=== PATIENT | female | born 1965 | race Caucasian/White ===

== ENCOUNTER 2017-03-23 09:51 | Emergency (ER) | payer SELFPAY ==
[~2017-03-23] VITALS: Ht 157.5 cm; Wt 52.0 kg
[~2017-03-23 09:51] MED LIST: CLIN1CAP6 PO
[2017-03-23 09:52] VITALS: BP 167/79; PULSE 95; RESP 16; TEMP 98.3; O2SAT 98
[2017-03-23] MEDS ORDERED: IBUP200T2 PO (10:04)
[2017-03-23] MEDS ORDERED: CLIN1CAP6 PO (10:35)
--- NOTE | 2017-03-23 10:35 | PD ---
HPI Chief Complaint: Facial Pain or Swelling Time Seen by Provider: 10:12 Travel History International Travel<30 days: No Contact w/Intl Traveler<30days: No Traveled to known affect area: No History of Present Illness HPI Patient is a 51-year-old female presenting to emergency department for evaluation of left cheek swelling. Patient states she woke up this morning like this. She has a history of the same, she states it recurs every few months. She reports a history of facial surgery with implanted hardware after reconstruction. She denies any fevers, chills, nausea, vomiting, facial pain. She further denies any redness or tooth pain. Patient states she has no insurance and has been unable to follow-up with a specialist. PFS Past Medical History Medical History: Denies Significant Hx GERD: Yes ?: Not Menopausal: Yes Past Surgical History Oral Surgery: Yes (plates, screws) Other Surgery: Yes (BREAST AUGMENTATION) Social History Alcohol Use: Yes (OCC) Tobacco Use: Yes (1 PPD) Substance Use: No Allergies-Medications (Allergen,Severity, Reaction): Coded Allergies: No Known Allergies (Unverified , 03/23/17) Reported Meds & Prescriptions Reported Meds & Active Scripts Active Reported Ibuprofen 200 Mg Tab 200 Mg PO Q4H PRN Review of Systems Except as stated in HPI: all other systems reviewed are Neg Skin: Positive Other (left cheek swelling) Physical Exam Narrative GENERAL: Well-developed, well-nourished, alert female. Resting comfortably in no acute distress. SKIN: Warm and dry. No rash or obvious lesions, no significant edema, no erythema noted to left cheek. No tenderness or warmth to palpation over left cheek. MOUTH: Mucous membranes moist, no lesions, tongue and gums appear normal. HEAD: Normocephalic. EYES: No scleral icterus. No injection or drainage. NECK: Supple, trachea midline. No JVD or lymphadenopathy. CARDIOVASCULAR: Regular rate and rhythm without murmurs, gallops, or rubs. RESPIRATORY: Breath sounds equal bilaterally. No accessory muscle use. GASTROINTESTINAL: Abdomen soft, non-tender, nondistended. MUSCULOSKELETAL: No cyanosis, or edema. BACK: Nontender without obvious deformity. No CVA tenderness. Data Data Last Documented VS Vital Signs Date Time Temp Pulse Resp B/P (MAP) Pulse Ox O2 Delivery O2 Flow Rate FiO2 03/23/17 09:52 98.3 95 16 167/79 (108) 98 Orders Orders Mandatory Outpatient Referral (03/23/17 10:26) MDM Medical Decision Making Medical Screen Exam Complete: Yes Emergency Medical Condition: Yes Medical Record Reviewed: Yes Interpretation(s) Vital Signs Date Time Temp Pulse Resp B/P (MAP) Pulse Ox O2 Delivery O2 Flow Rate FiO2 03/23/17 09:52 98.3 95 16 167/79 (108) 98 Differential Diagnosis Edema versus cellulitis versus dental abscess versus other Narrative Course Patient is a 51-year-old female presenting for evaluation of left cheek swelling. Patient's vital signs are stable, there no obvious signs of infection. There was nontender to palpation, no erythema, no significant edema. Cheek is mildly swollen, I saw this patient approximately a year and a half ago for the same complaint, at that time CT scan was performed to rule out abscess. This was negative and she was given a mandatory referral to oral maxillofacial surgeon. She states that she never followed up and was never called about this. She does state that this swelling occurs every several months and she is given antibiotics and it resolves. At this time patient appears well, she will be given a prescription for oral antibiotics and another mandatory referral has been made for her. She was strongly encouraged to follow up with a dentist as well. She was encouraged to return to emergency department for any new or worsening symptoms. She verbalized understanding of these instructions. Patient is stable for discharge. Diagnosis Primary Impression: Cheek swelling Referrals: Oral Maxillofacial Surgeon 1 week Patient Instructions: General Instructions Additional Instructions: Follow-up with oral maxillofacial surgeon or dentist [facility] health care Return to emergency department for any new or worsening symptoms Complete full course of antibiotics as prescribed Med/Other Pt SpecificInfo: Prescription(s) given Scripts Clindamycin (Clindamycin) 300 Mg Cap 300 MG PO TID for Infection, #21 CAP 0 Refills Prov: Deborah Chaparro 03/23/17 Disposition: 01 DISCHARGE HOME Condition: Stable Deborah Chaparro Mar 23, 2017 10:35
== END 2017-03-23 11:10 | disposition home or self-care (01) ==
LOC: NEPK 09:51
DX: R22.0 Localized swelling, mass and lump, head (principal); F17.200 Nicotine dependence, unspecified, uncomplicated
CPT/HCPCS: 99283

== ENCOUNTER 2017-03-24 11:32 | Inpatient (IN) | payer SELFPAY ==
[~2017-03-24] VITALS: Ht 157.5 cm; Wt 54.6 kg
[~2017-03-24 11:32] MED LIST changes: +IBUP200T2 PO
[2017-03-24 11:35] VITALS: BP 155/74; PULSE 90; RESP 20; TEMP 99; O2SAT 98
--- NOTE | 2017-03-24 12:07 | PD ---
HPI Chief Complaint: Facial Pain or Swelling Time Seen by Provider: 11:45 Travel History International Travel<30 days: No Contact w/Intl Traveler<30days: No Traveled to known affect area: No History of Present Illness HPI 51-year-old female presents to the emergency department for worsening left facial swelling and pain. Patient was seen here yesterday and was given prescription for clindamycin. However, she has taken 3 doses and symptoms have worsened. She does report a history of the same intermittently over the past 2 years. She has not followed up outpatient. Patient denies any fevers or chills. She reports worsening pain and swelling. She had jaw reconstruction surgery in the past and she believes this is the cause of the swelling. She has no other complaints at this time. She is not currently on any other medications other than clindamycin. PFSH Past Medical History GERD: Yes ?: Not Menopausal: Yes Past Surgical History Oral Surgery: Yes (plates, screws) Other Surgery: Yes (BREAST AUGMENTATION) Social History Alcohol Use: Yes (OCC) Tobacco Use: Yes (1 PPD) Substance Use: No Allergies-Medications (Allergen,Severity, Reaction): Coded Allergies: No Known Allergies (Unverified , 03/23/17) Reported Meds & Prescriptions Reported Meds & Active Scripts Active Clindamycin (Clindamycin HCl) 300 Mg Cap 300 Mg PO TID Review of Systems Except as stated in HPI: all other systems reviewed are Neg Physical Exam Narrative GENERAL: Well-nourished, well-developed female patient, afebrile. SKIN: Focused skin assessment warm/dry. HEAD: Normocephalic. Atraumatic. Patient has left facial swelling. No Jethro' s angina. There is induration, but no fluctuance noted. ENT: Mucosa pink and moist. No erythema or exudates. No uvular edema. No uvular , palatal, or tonsillar deviation. Airway patent. Nasal turbinates appear normal without nasal blood, purulent drainage or septal hematoma. Bilateral tympanic membranes are clear without erythema or perforation. EYES: No scleral icterus. No injection or drainage. NECK: Supple, trachea midline. No JVD or lymphadenopathy. CARDIOVASCULAR: Regular rate and rhythm without murmurs, gallops, or rubs. RESPIRATORY: Breath sounds equal bilaterally. No accessory muscle use. Lungs sounds are clear to auscultation. GASTROINTESTINAL: Abdomen soft, non-tender, nondistended. MUSCULOSKELETAL: No cyanosis, or edema. BACK: Nontender without obvious deformity. No CVA tenderness. Data Data Last Documented VS Vital Signs Date Time Temp Pulse Resp B/P (MAP) Pulse Ox O2 Delivery O2 Flow Rate FiO2 03/24/17 14:32 17 03/24/17 11:35 99.0 90 155/74 (101) 98 Room Air Orders Orders Iv Access Insert/Monitor (03/24/17 11:52) Complete Blood Count With Diff (03/24/17 11:52) Basic Metabolic Panel (Bmp) (03/24/17 11:52) Ct Facial Bones W Iv Contrast (03/24/17 ) Ketorolac Inj (Toradol Inj) (03/24/17 13:45) Iohexol 350 Inj (Omnipaque 350 Inj) (03/24/17 14:26) Clindamycin Inj (Cleocin Inj) (03/24/17 15:45) Vancomycin Inj (Vancomycin Inj) (03/24/17 15:45) Dexamethasone Inj (Decadron Inj) (03/24/17 16:00) Admit Order (Ed Use Only) (03/24/17 16:01) Labs Laboratory Tests Test 03/24/17 12:02 White Blood Count 9.4 TH/MM3 Red Blood Count 4.10 MIL/MM3 Hemoglobin 13.7 GM/DL Hematocrit 39.3 % Mean Corpuscular Volume 95.8 FL Mean Corpuscular Hemoglobin 33.3 PG Mean Corpuscular Hemoglobin Concent 34.8 % Red Cell Distribution Width 12.8 % Platelet Count 209 TH/MM3 Mean Platelet Volume 8.3 FL Neutrophils (%) (Auto) 71.8 % Lymphocytes (%) (Auto) 15.6 % Monocytes (%) (Auto) 11.9 % Eosinophils (%) (Auto) 0.4 % Basophils (%) (Auto) 0.3 % Neutrophils # (Auto) 6.7 TH/MM3 Lymphocytes # (Auto) 1.5 TH/MM3 Monocytes # (Auto) 1.1 TH/MM3 Eosinophils # (Auto) 0.0 TH/MM3 Basophils # (Auto) 0.0 TH/MM3 CBC Comment DIFF FINAL Differential Comment Blood Urea Nitrogen 13 MG/DL Creatinine 0.56 MG/DL Random Glucose 106 MG/DL Calcium Level 8.9 MG/DL Sodium Level 139 MEQ/L Potassium Level 4.2 MEQ/L Chloride Level 102 MEQ/L Carbon Dioxide Level 31.0 MEQ/L Anion Gap 6 MEQ/L Estimat Glomerular Filtration Rate 114 ML/MIN [facility] Medical Decision Making Medical Screen Exam Complete: Yes Emergency Medical Condition: Yes Medical Record Reviewed: Yes Differential Diagnosis Abscess versus cellulitis versus parotiditis Narrative Course 51-year-old female presents to the emergency department for worsening of left facial swelling. Patient was seen yesterday and was prescribed clindamycin. IV access established. CBC, BMP are ordered and pending. CT of the facial bones with IV contrast are ordered and pending. CBC shows no acute abnormality. BMP is unremarkable. CT of the facial bones shows left-sided peripheral enhancing premaxillary fluid collection suggesting abscess in the proper clinical setting. It abuts the area of left-sided maxillary surgical hardware; Small left maxillary sinus air-fluid level. Small lateral bone defect left maxillary sinus unchanged from prior study. Patient is started on Vancomycin 1 gm IV, Clindamycin 600 mg IV. I spoke to Dr. Loyd, cranial/facial surgeon on-call. He recommends IV antibiotics, Decadron 8 mg IV 2 doses, admission and consult to him. Hospitalist on-call was paged. Dr. Dunham accepted admission. Diagnosis Primary Impression: Facial abscess Admitting Information Admitting Physician Requests: Silvana Anthony Mar 24, 2017 12:07
[2017-03-24 12:27] LABS: AUTOMATED NEUTROPHIL # 6.7 TH/MM3 (1.8-7.7); BASOPHIL % 0.3 % (0.0-2.0); EOSINOPHIL % 0.4 % (0.0-4.0); HEMATOCRIT 39.3 % (35.0-46.0); HEMO FLAGS DIFF FINAL; LYMPH % 15.6 % (9.0-44.0); LYMPHOCYTE # 1.5 TH/MM3 (1.0-4.8); MEAN CELL VOLUME 95.8 FL (80.0-100.0); MEAN CORPUSCULAR HEMOGLOBIN 33.3 PG (27.0-34.0); MEAN CORPUSCULAR HGB CONC 34.8 % (32.0-36.0); MONO % 11.9 % (0.0-8.0); NEUT % 71.8 % (16.0-70.0); PLATELET COUNT 209 TH/MM3 (150-450); RED CELL DISTRIBUTION WIDTH 12.8 % (11.6-17.2); WHITE BLOOD COUNT 9.4 TH/MM3 (4.0-11.0)
[2017-03-24 12:40] LABS: POTASSIUM 4.2 MEQ/L (3.5-5.1)
[2017-03-24] MEDS ORDERED: KETOROLAC TROMETHAMINE 30 MG/ML (IVP) VIAL IV PUSH ONE (13:45)
[2017-03-24] MEDS ORDERED: IOHEXOL 350 MG/ML 10 ML VIAL (for RAD DIAG) IV PUSH ONE (14:26)
--- NOTE | 2017-03-24 14:59 | RADRPT ---
EXAM DATE/TIME: 03/24/2017 14:02 [place] COMPARISON: CT FACIAL BONES W CONTRAST, September 29, 2015, 17:18. INDICATIONS : Left facial swelling; reaccurent left abscess. IV CONTRAST: 100 cc Omnipaque 350 (iohexol) IV RADIATION DOSE: 36.93 CTDIvol (mGy) MEDICAL HISTORY : Facial trauma. SURGICAL HISTORY : Face ENCOUNTER: Initial ACUITY: 1 day PAIN SCALE: 8/10 LOCATION: Left facial TECHNIQUE: Volumetric scanning of the facial bones was performed. Using automated exposure control and adjustme nt of the mA and/or kV according to patient size, radiation dose was kept as low as reasonably achiev able to obtain optimal diagnostic quality images. DICOM format image data is available electronicall y for review and comparison. FINDINGS: ORBITS: The orbital and infraorbital osseous structures are intact. The retroconal structures have a normal configuration. No radiopaque foreign bodies are seen. NASAL BONE: The nasal bone and maxillary spine are intact ZYGOMATIC ARCHES: Symmetric without evidence of fracture. SINUSES: Post surgical findings anterior goldsmith maxillary sinuses. Small bone defect of the lateral wall left m axillary sinus. Small air-fluid level left maxillary sinus. SOFT TISSUES: Peripheral enhancing fluid collection is seen in the left premaxillary region measuring 2.8xx 2.2 cm indicating abscess. This is immediately adjacent to the left-sided surgical hardware. Adjacent premax illary soft tissue edema and left preorbital soft tissue edema. INTRACRANIAL: No intracranial air seen. CONCLUSION: 1. Left-sided peripheral enhancing premaxillary fluid collection suggesting abscess in the proper cli nical setting. It abuts the area of left-sided maxillary surgical hardware. 2. Small left maxillary sinus air-fluid level. Small lateral bone defect left maxillary sinus unchang ed from prior study. Joshua Solitario MD on March 24, 2017 at 14:53 Board Certified Radiologist. This report was verified electronically.
[2017-03-24] MEDS ORDERED: CLINDAMYCIN INJ 600 MG in SODIUM CHLORIDE 0.9% INJ 100 ML IV ONE (15:45)
[2017-03-24] MEDS ORDERED: VANCOMYCIN INJ 1,000 MG in SODIUM CHLOR 0.9% 250 ML INJ 250 ML IV ONE (15:45)
[2017-03-24] MEDS ORDERED: DEXAMETHASONE SOD PHOS 4 MG/ML VIAL IV PUSH ONE (16:00)
[2017-03-24] MEDS ORDERED: SENNOSIDES 8.6 MG TAB PO PRN (16:30)
[2017-03-24] MEDS ORDERED: PROCHLORPERAZINE 25 MG SUPP RECTAL PRN (16:30)
[2017-03-24] MEDS ORDERED: Vancomycin Consult Pharmacy 1 EA OTHER SCH (16:30)
[2017-03-24] MEDS ORDERED: ACETAMINOPHEN 325 MG TAB PO PRN ×2 (16:30)
[2017-03-24] MEDS ORDERED: NICOTINE 14 MG/24 HR PATCH T-DERMAL ONE (16:30)
[2017-03-24] MEDS ORDERED: cloNIDine HCL 0.1 MG TAB PO PRN (16:30)
[2017-03-24] MEDS ORDERED: BISACODYL 10 MG SUPP RECTAL PRN (16:30)
[2017-03-24] MEDS ORDERED: NALOXONE HCL 0.4 MG/ML AMP IV PRN (16:30)
[2017-03-24] MEDS ORDERED: MAGNESIUM HYDROXIDE SUSP 30 ML CUP PO PRN (16:30)
[2017-03-24] MEDS ORDERED: LACTULOSE SYRUP 20 GM/30 ML CUP PO PRN (16:30)
[2017-03-24] MEDS ORDERED: oxyCODONE/ACETAMINOPHEN 5 MG/325 MG TAB PO PRN (16:30)
[2017-03-24] MEDS ORDERED: SODIUM CHLORIDE 0.9% FLUSH 10 ML FLUSH IV FLUSH PRN (16:30)
[2017-03-24] MEDS ORDERED: ONDANSETRON HCL 4 MG/2 ML VIAL IVP PRN (16:30)
[2017-03-24] MEDS ORDERED: MORPHINE SULFATE 4 MG/ML INJ IV PRN (16:30)
--- NOTE | 2017-03-24 16:42 | HHI.HP ---
[facility] No Primary Care Physician Admission Diagnosis facial abscess Diagnoses: (1) Tobacco abuse Diagnosis: Secondary (2) Failure of outpatient treatment Diagnosis: Principal (3) Dental abscess Diagnosis: Secondary (4) Facial abscess Diagnosis: Principal Travel History International Travel<30 Days: No Contact w/Intl Traveler <30 Da: No Traveled to Known Affected Are: No History of Present Illness 51-year-old female presents to the emergency department for worsening left facial swelling and pain. Patient was seen here yesterday and was given prescription for clindamycin. However, she has taken 3 doses and symptoms have worsened. She does report a history of the same intermittently over the past 2 years. She has not followed up outpatient. Patient denies any fevers or chills. She reports worsening pain and swelling. She had jaw reconstruction surgery in the past and she believes this is the cause of the swelling. She has no other complaints at this time. She is not currently on any other medications other than clindamycin. Review of Systems Constitutional: DENIES: Diaphoretic episodes, Fatigue, Fever, Weight gain, Weight loss, Chills, Dizziness Endocrine: DENIES: Abnorml menstrual pattern, Heat/cold intolerance, Polydipsia , Polyuria, Polyphagia Eyes: DENIES: Blurred vision, Diplopia, Eye inflammation, Eye pain, Vision loss , Photosensitivity Ears, nose, mouth, throat: DENIES: Tinnitus, Hearing loss, Vertigo, Nasal discharge, Oral lesions, Throat pain, Hoarseness, Ear Pain, Running Nose, Epistaxis Respiratory: DENIES: Apneas, Cough, Snoring, Wheezing, Hemoptysis, Sputum production Cardiovascular: DENIES: Chest pain, Palpitations, Syncope, Dyspnea on Exertion , PND Gastrointestinal: DENIES: Abdominal pain, Black stools, Bloody stools, Constipation, Diarrhea Genitourinary: DENIES: Abnormal vaginal bleeding Musculoskeletal: DENIES: Joint pain, Muscle aches, Stiffness, Joint Swelling, Back pain Integumentary: COMPLAINS OF: Abnormal pigmentation, Rash, DENIES: Pruritus, Nail changes, Breast masses, Breast skin changes Hematologic/lymphatic: DENIES: Bruising, Lymphadenopathy Immunologic/allergic: DENIES: Eczema, Urticaria Neurologic: DENIES: Abnormal gait, Headache, Localized weakness, Paresthesias Psychiatric: DENIES: Anxiety, Confusion, Mood changes, Depression Past Family Social History Past Medical History GERD ORAL SURGERY Past Surgical History ORAL SURGERY WITH PLATES AND SCREWS BILATERAL BREAST AUGMENTATION Reported Medications Reported Meds & Active Scripts Active Clindamycin (Clindamycin HCl) 300 Mg Cap 300 Mg PO TID Allergies: Coded Allergies: No Known Allergies (Unverified , 03/23/17) Active Ordered Medications Current Medications Ketorolac Tromethamine (Toradol Inj) 30 mg ONCE ONCE IV PUSH Last administered on 03/24/17 13:44; Start 03/24/17 at 13:45; Stop 03/24/17 at 13:46; Status DC Iohexol (Omnipaque 350 Inj) 100 ml STK-MED ONCE IV PUSH Last administered on 14:26; Start 03/24/17 at 14:26; Stop 03/24/17 at 14:27; Status DC Clindamycin Phosphate 600 mg/ Sodium Chloride 104 ml @ 208 mls/hr ONCE ONCE IV ; Start 03/24/17 at 15:45; Stop 03/24/17 at 16:14; Status DC Vancomycin HCl 1000 mg/Sodium Chloride 250 ml @ 250 mls/hr ONCE ONCE IV Last administered on 03/24/17 16:00; Start 03/24/17 at 15:45; Stop 03/24/17 at 16:44 Dexamethasone Sodium Phosphate (Decadron Inj) 8 mg ONCE ONCE IV PUSH ; Start at 16:00; Stop 03/24/17 at 16:01; Status DC Sodium Chloride 1,000 ml @ 100 mls/hr Q10H IV ; Start 03/24/17 at 16:24; Status UNV Sodium Chloride (NS Flush) 2 ml UNSCH PRN IV FLUSH FLUSH AFTER USING IV ACCESS ; Start 03/24/17 at 16:30; Status UNV Sodium Chloride (NS Flush) 2 ml BID IV FLUSH ; Start 03/24/17 at 21:00; Status UNV Acetaminophen (Tylenol) 650 mg Q4H PRN PO TEMP > 100.4; Start 03/24/17 at 16:30 ; Status UNV Ondansetron HCl (Zofran Inj) 4 mg Q6H PRN IVP NAUSEA OR VOMITING; Start at 16:30; Status UNV Prochlorperazine (Compazine Supp) 25 mg Q12H PRN TX NAUSEA OR VOMITING; Start 03/24/17 at 16:30; Status UNV Zolpidem Tartrate (Ambien) 5 mg HS PRN PO INSOMNIA; Start 03/24/17 at 16:30; Status UNV Heparin Sodium (Porcine) (Heparin Inj) 5,000 units Q12H SQ ; Start 03/24/17 at 16 :30; Status UNV Acetaminophen (Tylenol) 650 mg Q6H PRN PO PAIN SCALE 1 TO 2; Start 03/24/17 at 16:30; Status UNV Oxycodone/ Acetaminophen (Percocet 5-325 Mg) 1 tab Q6H PRN PO PAIN SCALE 3 TO 5; Start 03/24/17 at 16:30; Status UNV Oxycodone/ Acetaminophen (Percocet 10-325 Mg) 1 tab Q6H PRN PO PAIN SCALE 6 TO 10; Start 03/24/17 at 16:30; Status UNV Morphine Sulfate (Morphine Inj) 2 mg Q3H PRN IV Pain 3-5; if unable to take PO ; Start 03/24/17 at 16:30; Status UNV Morphine Sulfate (Morphine Inj) 4 mg Q3H PRN IV Pain 6-10;if unable to take PO ; Start 03/24/17 at 16:30; Status UNV Naloxone HCl (Narcan Inj) 0.4 mg UNSCH PRN IV SEE LABEL COMMENTS; Start at 16:30; Status UNV Senna/Docusate Sodium (Patricia-Colace) 1 tab BID PO ; Start 03/24/17 at 21:00; Status UNV Magnesium Hydroxide (Milk Of Magnesia Liq) 30 ml Q12H PRN PO MILD - MODERATE CONSTIPATION; Start 03/24/17 at 16:30; Status UNV Sennosides (Senokot) 17.2 mg Q12H PRN PO MODERATE - SEVERE CONSTIPATION; Start 03/24/17 at 16:30; Status UNV Bisacodyl (Dulcolax Supp) 10 mg DAILY PRN RECTAL SEVERE CONSITIPATION; Start at 16:30; Status UNV Lactulose (Lactulose Liq) 30 ml DAILY PRN PO SEVERE CONSITIPATION; Start at 16:30; Status UNV Nicotine (Habitrol 14 Mg Patch.24 Hr) 1 patch ONCE ONCE T-DERMAL ; Start at 16:30; Stop 03/24/17 at 16:31; Status UNV Nicotine (Habitrol 14 Mg Patch.24 Hr) 1 patch DAILY T-DERMAL ; Start 03/25/17 at 09:00; Status UNV Miscellaneous Information 1 DAILY T-DERMAL ; Start 03/25/17 at 09:00; Status UNV Family History POSSIBLY HYPERTENSION 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 SKIN: No rashes, ecchymoses or lesions. Cool and dry. RASH AND SWELLING LEFT SIDE OF FACE WITH SOME PTOSIS DUE TO SWELLING, TENDERNESS AND SOME ERYTHEMA HEAD: Atraumatic. Normocephalic. No temporal or scalp tenderness. EYES: Pupils equal round and reactive. Extraocular motions intact. No scleral icterus. No injection or drainage. ENT: Nose without bleeding, purulent drainage or septal hematoma. Throat without erythema, tonsillar hypertrophy or exudate. Uvula midline. Airway patent. NECK: Trachea midline. No JVD or lymphadenopathy. Supple, nontender, no meningeal signs. CARDIOVASCULAR: Regular rate and rhythm without murmurs, gallops, or rubs. S1, S2 NO S3 OR S4 NO HEAVE OR THRILL RESPIRATORY: Clear to auscultation. Breath sounds equal bilaterally. No wheezes , rales, or rhonchi. GASTROINTESTINAL: Abdomen soft, non-tender, nondistended. No hepato-splenomegaly , or palpable masses. No guarding. MUSCULOSKELETAL: Extremities without clubbing, cyanosis, or edema. No joint tenderness, effusion, or edema noted. No calf tenderness. Negative Homans sign bilaterally. NEUROLOGICAL: Awake and alert. Cranial nerves II through XII intact. Motor and sensory grossly within normal limits. Five out of 5 muscle strength in all muscle groups. Normal speech. INSIGHT AND JUDGEMENT ARE GOOD MOOD AND BEHAVIOR ARE APPROPRIATE Laboratory Laboratory Tests Test 03/24/17 12:02 White Blood Count 9.4 Red Blood Count 4.10 Hemoglobin 13.7 Hematocrit 39.3 Mean Corpuscular Volume 95.8 Mean Corpuscular Hemoglobin 33.3 Mean Corpuscular Hemoglobin Concent 34.8 Red Cell Distribution Width 12.8 Platelet Count 209 Mean Platelet Volume 8.3 Neutrophils (%) (Auto) 71.8 Lymphocytes (%) (Auto) 15.6 Monocytes (%) (Auto) 11.9 Eosinophils (%) (Auto) 0.4 Basophils (%) (Auto) 0.3 Neutrophils # (Auto) 6.7 Lymphocytes # (Auto) 1.5 Monocytes # (Auto) 1.1 Eosinophils # (Auto) 0.0 Basophils # (Auto) 0.0 CBC Comment DIFF FINAL Differential Comment Blood Urea Nitrogen 13 Creatinine 0.56 Random Glucose 106 Calcium Level 8.9 Sodium Level 139 Potassium Level 4.2 Chloride Level 102 Carbon Dioxide Level 31.0 Anion Gap 6 Estimat Glomerular Filtration Rate 114 Result Diagram: 03/24/17 1202 03/24/17 1202 Imaging Last Impressions Maxillofacial CT 03/24/17 0000 Signed Impressions: Service Date/Time: Friday, March 24, 2017 14:02 - CONCLUSION: 1. Left-sided peripheral enhancing premaxillary fluid collection suggesting abscess in the proper clinical setting. It abuts the area of left-sided maxillary surgical hardware. 2. Small left maxillary sinus air-fluid level. Small lateral bone defect left maxillary sinus unchanged from prior study. MD Román Brysoni VTE Risk Assessment Caprini VTE Risk Assessment: No/Low Risk (score <= 1) Caprini Risk Assessment Model Point Value = 1 Point Value = 2 Point Value = 3 Point Value = 5 Age 41-60 Minor surgery BMI > 25 kg/m2 Swollen legs Varicose veins or History of unexplained or recurrent spontaneous Oral contraceptives or hormone replacement Sepsis (< 1 month) Serious lung disease, including pneumonia (< 1 month) Abnormal pulmonary function Acute myocardial infarction Congestive heart failure (< 1 month) History of inflammatory bowel disease Medical patient at bed rest Age 61-74 Arthroscopic surgery Major open surgery (> 45 min) Laparoscopic surgery (> 45 min) Malignancy Confined to bed (> 72 hours) Immobilizing plaster cast Central venous access Age >= 75 History of VTE Family history of VTE Factor V Leiden Prothrombin [id number] Lupus anticoagulant Anticardiolipin antibodies Elevated serum homocysteine Heparin-induced thrombocytopenia Other congenital or acquired thrombophilia Stroke (< 1 month) Elective arthroplasty Hip, pelvis, or leg fracture Acute spinal cord injury (< 1 month) Prophylaxis Regimen Total Risk Factor Score Risk Level Prophylaxis Regimen 0-1 Low Early ambulation 2 Moderate Order ONE of the following: *Sequential Compression Device (SCD) *Heparin 5000 units SQ BID 3-4 Higher Order ONE of the following medications: *Heparin 5000 units SQ TID *Enoxaparin/Lovenox 40 mg SQ daily (WT < 150 kg, CrCl > 30 mL/min) *Enoxaparin/Lovenox 30 mg SQ daily (WT < 150 kg, CrCl > 10-29 mL/min) *Enoxaparin/Lovenox 30 mg SQ BID (WT < 150 kg, CrCl > 30 mL/min) AND/OR *Sequential Compression Device (SCD) 5 or more Highest Order ONE of the following medications: *Heparin 5000 units SQ TID (Preferred with Epidurals) *Enoxaparin/Lovenox 40 mg SQ daily (WT < 150 kg, CrCl > 30 mL/min) *Enoxaparin/Lovenox 30 mg SQ daily (WT < 150 kg, CrCl > 10-29 mL/min) *Enoxaparin/Lovenox 30 mg SQ BID (WT < 150 kg, CrCl > 30 mL/min) AND *Sequential Compression Device (SCD) Assessment and Plan Problem List: (1) Failure of outpatient treatment ICD Code: Z78.9 - Other specified health status (2) Tobacco abuse ICD Code: Z72.0 - Tobacco use (3) Dental abscess ICD Code: K04.7 - Periapical abscess without sinus Status: Acute (4) Facial abscess ICD Code: L02.01 - Cutaneous abscess of face Status: Acute Assessment and Plan LEFT FACIAL SWELLING/CELLULITIS/ABSCESS WITH FAILED OUTPATIENT THERAPY LEFT SIDED PERIPHERAL ENHANCING PREMAXILLARY FLUID COLLECTION SUGGESTING ABSCESS CONTINUE ON VANCO AND ZOSYN PHARMACY TO DOSE THE VANCOMYCIN DR AGUIRRE OF CRANIAL/FACIAL SURGEON WILL SEE AND CONSULT TOBACCO ABUSE-- NICODERM HX BILATERAL BREAST AUGMENTATION -STABLE HX OF FACIAL RECONSTRUCTIVE SURGERIES- WITH HARDWARE IN PLACE- MAY CAUSE THE ISSUES [facility] KATIE RN AND PT AND ER Code Status FULL CODE Discussed Condition With [facility] ER AND RN AND PATIENT RolyDarrianJorden MAST Mar 24, 2017 16:42
[2017-03-24 16:49] VITALS: BP 137/74; PULSE 87; RESP 17; O2SAT 100
[2017-03-24] MEDS: SODIUM CHLOR 0.9% 1000 ML INJ 1,000 ML IV SCH (17:35)
[2017-03-24] MEDS: HEPARIN SODIUM - SQ 10,000 UNITS/ML VIAL SQ SCH (18:49)
[2017-03-24] MEDS: PIPERACIL-TAZO 4.5 GM PREMIX 100 ML IV SCH (18:50)
[2017-03-24] MEDS: oxyCODONE/ACETAMINOPHEN 10 MG/325 MG TAB PO PRN (18:50)
[2017-03-24 19:32] VITALS: BP 105/58; PULSE 79; RESP 18; TEMP 98.7; O2SAT 95
[2017-03-24] MEDS: SODIUM CHLORIDE 0.9% FLUSH 10 ML FLUSH IV FLUSH SCH (21:00)
[2017-03-24] MEDS: DOCUSATE SODIUM 50 MG/SENNA 8.6 MG TAB PO SCH (21:00)
[2017-03-24] MEDS: ZOLPIDEM TARTRATE 5 MG TAB PO PRN (22:55)
[2017-03-25] MEDS ORDERED: DEXAMETHASONE SOD PHOS 4 MG/ML VIAL IV PUSH ONE
[2017-03-25] MEDS: PIPERACIL-TAZO 4.5 GM PREMIX 100 ML IV SCH ×4 (00:18→18:16)
[2017-03-25 00:26] VITALS: BP 111/60; PULSE 54; RESP 16; TEMP 98.7; O2SAT 96
[2017-03-25] MEDS: SODIUM CHLOR 0.9% 1000 ML INJ 1,000 ML IV SCH ×2 (02:07→13:41)
[2017-03-25 03:14] VITALS: BP 110/65; PULSE 70; RESP 17; TEMP 97.9; O2SAT 96
[2017-03-25] MEDS: HEPARIN SODIUM - SQ 10,000 UNITS/ML VIAL SQ SCH ×2 (05:21→08:04)
[2017-03-25 07:34] VITALS: BP 113/64; PULSE 50; RESP 19; TEMP 97.8; O2SAT 97
[2017-03-25] MEDS: NICOTINE 14 MG/24 HR PATCH T-DERMAL SCH (08:04)
[2017-03-25] MEDS: DOCUSATE SODIUM 50 MG/SENNA 8.6 MG TAB PO SCH ×2 (08:05→21:14)
[2017-03-25] MEDS: MORPHINE SULFATE 4 MG/ML INJ IV PRN ×2 (08:05→18:18)
[2017-03-25] MEDS: REMOVE OLD PATCH T-DERMAL SCH (08:05)
[2017-03-25 08:18] LABS: AUTOMATED NEUTROPHIL # 9.7 TH/MM3 (1.8-7.7); HEMATOCRIT 38.6 % (35.0-46.0); LYMPH % 5.7 % (9.0-44.0); LYMPHOCYTE # 0.6 TH/MM3 (1.0-4.8); MEAN CELL VOLUME 95.8 FL (80.0-100.0); MEAN CORPUSCULAR HEMOGLOBIN 32.7 PG (27.0-34.0); MEAN CORPUSCULAR HGB CONC 34.2 % (32.0-36.0); MONO % 2.2 % (0.0-8.0); NEUT % 92.1 % (16.0-70.0); PLATELET COUNT 178 TH/MM3 (150-450); RED BLOOD COUNT 4.02 MIL/MM3 (4.00-5.30); RED CELL DISTRIBUTION WIDTH 12.6 % (11.6-17.2); WHITE BLOOD COUNT 10.5 TH/MM3 (4.0-11.0)
[2017-03-25 08:26] LABS: HEMO FLAGS AUTO DIFF
[2017-03-25 08:51] LABS: ALKALINE PHOSPHATASE 74 U/L (45-117); ALT (GPT) 18 U/L (10-53); ANION GAP 7 MEQ/L (5-15); AST (GOT) 9 U/L (15-37); BICARBONATE 26.7 MEQ/L (21.0-32.0); BLOOD UREA NITROGEN 14 MG/DL (7-18); CHLORIDE 105 MEQ/L (98-107); FREE T4 0.96 NG/DL (0.76-1.46); GLOMERULAR FILTRATION RATE 109 ML/MIN (>89); POTASSIUM 3.9 MEQ/L (3.5-5.1); SODIUM (NA) 139 MEQ/L (136-145); TOTAL BILIRUBIN ADULT 0.3 MG/DL (0.2-1.0)
--- NOTE | 2017-03-25 10:17 | HHI.PR ---
Subjective Remarks 51-year-old female presents to the emergency department for worsening left facial swelling and pain. Patient was seen here yesterday and was given prescription for clindamycin. However, she has taken 3 doses and symptoms have worsened. She does report a history of the same intermittently over the past 2 years. She has not followed up outpatient. Patient denies any fevers or chills. She reports worsening pain and swelling. She had jaw reconstruction surgery in the past and she believes this is the cause of the swelling. She has no other complaints at this time. She is not currently on any other medications other than clindamycin. 9-10 WAS STARTED ON VANCO AND ZOSYN SOME SLIGHT IMPROVEMENT ON THE LEFT SIDE DW RN AND PT SEEN WITH FEMALE RN IN ATTENDANCE Objective Vitals Vital Signs Date Time Temp Pulse Resp B/P (MAP) Pulse Ox O2 Delivery O2 Flow Rate FiO2 03/25/17 09:44 21 03/25/17 07:34 97.8 50 19 113/64 (80) 97 03/25/17 06:25 21 03/25/17 03:14 97.9 70 17 110/65 (80) 96 03/25/17 00:26 98.7 54 16 111/60 (77) 96 03/24/17 20:00 18 03/24/17 19:32 98.7 79 18 105/58 (74) 95 03/24/17 17:50 03/24/17 16:49 87 17 137/74 (95) 100 Room Air 03/24/17 14:32 17 03/24/17 11:35 99.0 90 20 155/74 (101) 98 Room Air I/O 03/24/17 03/24/17 03/24/17 03/25/17 03/25/17 03/25/17 07:00 15:00 23:00 07:00 15:00 23:00 Intake Total 100 ml 100 ml Balance 100 ml 100 ml Intake IV Total 100 ml 100 ml Result Diagram: 03/25/1772903/25/17729 Other Results Laboratory Tests Test 03/24/17 12:02 03/25/17 07:30 White Blood Count 9.4 TH/MM3 10.5 TH/MM3 Red Blood Count 4.10 MIL/MM3 4.02 MIL/MM3 Hemoglobin 13.7 GM/DL 13.2 GM/DL Hematocrit 39.3 % 38.6 % Mean Corpuscular Volume 95.8 FL 95.8 FL Mean Corpuscular Hemoglobin 33.3 PG 32.7 PG Mean Corpuscular Hemoglobin Concent 34.8 % 34.2 % Red Cell Distribution Width 12.8 % 12.6 % Platelet Count 209 TH/MM3 178 TH/MM3 Mean Platelet Volume 8.3 FL 8.8 FL Neutrophils (%) (Auto) 71.8 % 92.1 % Lymphocytes (%) (Auto) 15.6 % 5.7 % Monocytes (%) (Auto) 11.9 % 2.2 % Eosinophils (%) (Auto) 0.4 % 0.0 % Basophils (%) (Auto) 0.3 % 0.0 % Neutrophils # (Auto) 6.7 TH/MM3 9.7 TH/MM3 Lymphocytes # (Auto) 1.5 TH/MM3 0.6 TH/MM3 Monocytes # (Auto) 1.1 TH/MM3 0.2 TH/MM3 Eosinophils # (Auto) 0.0 TH/MM3 0.0 TH/MM3 Basophils # (Auto) 0.0 TH/MM3 0.0 TH/MM3 CBC Comment DIFF FINAL AUTO DIFF Differential Comment Erythrocyte Sedimentation Rate 31 mm/hr Blood Urea Nitrogen 13 MG/DL 14 MG/DL Creatinine 0.56 MG/DL 0.58 MG/DL Random Glucose 106 MG/DL 245 MG/DL Calcium Level 8.9 MG/DL 8.4 MG/DL Sodium Level 139 MEQ/L 139 MEQ/L Potassium Level 4.2 MEQ/L 3.9 MEQ/L Chloride Level 102 MEQ/L 105 MEQ/L Carbon Dioxide Level 31.0 MEQ/L 26.7 MEQ/L Anion Gap 6 MEQ/L 7 MEQ/L Estimat Glomerular Filtration Rate 114 ML/MIN 109 ML/MIN C-Reactive Protein 7.41 MG/DL Total Protein 6.4 GM/DL Albumin 3.0 GM/DL Phosphorus Level 2.1 MG/DL Magnesium Level 2.0 MG/DL Alkaline Phosphatase 74 U/L Aspartate Amino Transf (AST/SGOT) 9 U/L Alanine Aminotransferase (ALT/SGPT) 18 U/L Total Bilirubin 0.3 MG/DL Free Thyroxine 0.96 NG/DL Thyroid Stimulating Hormone 3rd Gen 0.307 uIU/ML Imaging Last Impressions Maxillofacial CT 03/24/17 0000 Signed Impressions: Service Date/Time: Friday, March 24, 2017 14:02 - CONCLUSION: 1. Left-sided peripheral enhancing premaxillary fluid collection suggesting abscess in the proper clinical setting. It abuts the area of left-sided maxillary surgical hardware. 2. Small left maxillary sinus air-fluid level. Small lateral bone defect left maxillary sinus unchanged from prior study. Joshua Solitario MD Objective Remarks GENERAL: This is a well-nourished, well-developed patient, in no apparent distress. SKIN: No rashes, ecchymoses or lesions. Cool and dry. RASH AND SWELLING LEFT SIDE OF FACE WITH SOME PTOSIS DUE TO SWELLING, TENDERNESS AND SOME ERYTHEMA- A LITTLE LESS THAN YESTERDAY HEAD: Atraumatic. Normocephalic. No temporal or scalp tenderness. EYES: Pupils equal round and reactive. Extraocular motions intact. No scleral icterus. No injection or drainage. ENT: Nose without bleeding, purulent drainage or septal hematoma. Throat without erythema, tonsillar hypertrophy or exudate. Uvula midline. Airway patent. NECK: Trachea midline. No JVD or lymphadenopathy. Supple, nontender, no meningeal signs. CARDIOVASCULAR: Regular rate and rhythm without murmurs, gallops, or rubs. S1, S2 NO S3 OR S4 NO HEAVE OR THRILL RESPIRATORY: Clear to auscultation. Breath sounds equal bilaterally. No wheezes , rales, or rhonchi. GASTROINTESTINAL: Abdomen soft, non-tender, nondistended. No hepato-splenomegaly , or palpable masses. No guarding. MUSCULOSKELETAL: Extremities without clubbing, cyanosis, or edema. No joint tenderness, effusion, or edema noted. No calf tenderness. Negative Homans sign bilaterally. NEUROLOGICAL: Awake and alert. Cranial nerves II through XII intact. Motor and sensory grossly within normal limits. Five out of 5 muscle strength in all muscle groups. Normal speech. INSIGHT AND JUDGEMENT ARE GOOD MOOD AND BEHAVIOR ARE APPROPRIATE Medications and IVs Current Medications Ketorolac Tromethamine (Toradol Inj) 30 mg ONCE ONCE IV PUSH Last administered on 03/24/17 13:44; Start 03/24/17 at 13:45; Stop 03/24/17 at 13:46; Status DC Iohexol (Omnipaque 350 Inj) 100 ml STK-MED ONCE IV PUSH Last administered on 14:26; Start 03/24/17 at 14:26; Stop 03/24/17 at 14:27; Status DC Clindamycin Phosphate 600 mg/ Sodium Chloride 104 ml @ 208 mls/hr ONCE ONCE IV ; Start 03/24/17 at 15:45; Stop 03/24/17 at 16:14; Status DC Vancomycin HCl 1000 mg/Sodium Chloride 250 ml @ 250 mls/hr ONCE ONCE IV Last administered on 03/24/17 16:00; Start 03/24/17 at 15:45; Stop 03/24/17 at 16:44; Status DC Dexamethasone Sodium Phosphate (Decadron Inj) 8 mg ONCE ONCE IV PUSH Last administered on 03/24/17 17:34; Start 03/24/17 at 16:00; Stop 03/24/17 at 16:01; Status DC Sodium Chloride 1,000 ml @ 100 mls/hr Q10H IV Last administered on 03/24/17 17 :35; Start 03/24/17 at 17:00 Sodium Chloride (NS Flush) 2 ml UNSCH PRN IV FLUSH FLUSH AFTER USING IV ACCESS ; Start 03/24/17 at 16:30 Sodium Chloride (NS Flush) 2 ml BID IV FLUSH ; Start 03/24/17 at 21:00 Acetaminophen (Tylenol) 650 mg Q4H PRN PO TEMP > 100.4; Start 03/24/17 at 16:30 Ondansetron HCl (Zofran Inj) 4 mg Q6H PRN IVP NAUSEA OR VOMITING; Start at 16:30 Prochlorperazine (Compazine Supp) 25 mg Q12H PRN RECTAL NAUSEA OR VOMITING; Start 03/24/17 at 16:30 Zolpidem Tartrate (Ambien) 5 mg HS PRN PO INSOMNIA Last administered on 22:55; Start 03/24/17 at 16:30 Heparin Sodium (Porcine) (Heparin Inj) 5,000 units Q12H SQ Last administered on 03/25/17 08:04; Start 03/24/17 at 18:00 Acetaminophen (Tylenol) 650 mg Q6H PRN PO PAIN SCALE 1 TO 2; Start 03/24/17 at 16:30 Oxycodone/ Acetaminophen (Percocet 5-325 Mg) 1 tab Q6H PRN PO PAIN SCALE 3 TO 5; Start 03/24/17 at 16:30 Oxycodone/ Acetaminophen (Percocet 10-325 Mg) 1 tab Q6H PRN PO PAIN SCALE 6 TO 10 Last administered on 03/24/17 18:50; Start 03/24/17 at 16:30 Morphine Sulfate (Morphine Inj) 2 mg Q3H PRN IV Pain 3-5; if unable to take PO ; Start 03/24/17 at 16:30 Morphine Sulfate (Morphine Inj) 4 mg Q3H PRN IV Pain 6-10;if unable to take PO Last administered on 03/25/17 08:05; Start 03/24/17 at 16:30 Naloxone HCl (Narcan Inj) 0.4 mg UNSCH PRN IV SEE LABEL COMMENTS; Start at 16:30 Senna/Docusate Sodium (Patricia-Colace) 1 tab BID PO Last administered on 08:05; Start 03/24/17 at 21:00 Magnesium Hydroxide (Milk Of Magnesia Liq) 30 ml Q12H PRN PO MILD - MODERATE CONSTIPATION; Start 03/24/17 at 16:30 Sennosides (Senokot) 17.2 mg Q12H PRN PO MODERATE - SEVERE CONSTIPATION; Start 03/24/17 at 16:30 Bisacodyl (Dulcolax Supp) 10 mg DAILY PRN RECTAL SEVERE CONSITIPATION; Start at 16:30 Lactulose (Lactulose Liq) 30 ml DAILY PRN PO SEVERE CONSITIPATION; Start at 16:30 Nicotine (Habitrol 14 Mg Patch.24 Hr) 1 patch ONCE ONCE T-DERMAL ; Start at 16:30; Stop 03/24/17 at 16:42; Status DC Nicotine (Habitrol 14 Mg Patch.24 Hr) 1 patch DAILY T-DERMAL Last administered on 03/25/17 08:04; Start 03/25/17 at 09:00 Miscellaneous Information 1 DAILY T-DERMAL Last administered on 03/25/17 08:05 ; Start 03/25/17 at 09:00 Dexamethasone Sodium Phosphate (Decadron Inj) 8 mg ONCE ONCE IV PUSH Last administered on 03/25/17 00:20; Start 03/25/17 at 00:00; Stop 03/25/17 at 00:01 ; Status DC Pharmacy Profile Note 0 ml @ 0 mls/hr UNSCH OTHER ; Start 03/24/17 at 16:30 Clonidine (Catapres) 0.1 mg Q4H PRN PO SBP>160, DBP>90; Start 03/24/17 at 16:30 Piperacillin Sod/ Tazobactam Sod 100 ml @ 200 mls/hr Q6H IV Last administered on 03/25/17t 05:21; Start 03/24/17 at 18:00 Vancomycin HCl 850 mg/Sodium Chloride 258.5 ml @ 250 mls/hr Q18H IV ; Start 05/01 at 10:00 Miscellaneous Information SPECIFIC LAB TO BE ... ONCE ONCE .XX ; Start 03/26 at 21:45; Stop 03/26/17 at 21:46 Urinary Catheter: No Vascular Central Line Catheter: No A/P Problem List: (1) Failure of outpatient treatment ICD Code: Z78.9 - Other specified health status (2) Tobacco abuse ICD Code: Z72.0 - Tobacco use (3) Dental abscess ICD Code: K04.7 - Periapical abscess without sinus Status: Acute (4) Facial abscess ICD Code: L02.01 - Cutaneous abscess of face Status: Acute Assessment and Plan LEFT FACIAL SWELLING/CELLULITIS/ABSCESS WITH FAILED OUTPATIENT THERAPY LEFT SIDED PERIPHERAL ENHANCING PREMAXILLARY FLUID COLLECTION SUGGESTING ABSCESS CONTINUE ON VANCO AND ZOSYN PHARMACY TO DOSE THE VANCOMYCIN DR AGUIRRE OF CRANIAL/FACIAL SURGEON WILL SEE AND CONSULT TOBACCO ABUSE-- NICODERM HX BILATERAL BREAST AUGMENTATION -STABLE HX OF FACIAL RECONSTRUCTIVE SURGERIES- WITH HARDWARE IN PLACE- MAY CAUSE THE ISSUES VANCO , ZOSYN, DECADRON AM LABS DW RN AND PT AND ER AWAIT CRANIAL/FACIAL SURGERY EVAL CONTINUE ZOSYN AND VANCO LACTINEX CONTINUE ORAL PAIN CONTROL Discharge Planning AWAIT SURGERY Darrian Schulte DO Mar 25, 2017 10:17
[2017-03-25] MEDS: VANCOMYCIN INJ 850 MG in SODIUM CHLOR 0.9% 250 ML INJ 250 ML IV SCH (10:22)
[2017-03-25] MEDS: SODIUM CHLORIDE 0.9% FLUSH 10 ML FLUSH IV FLUSH SCH ×2 (10:22→21:00)
[2017-03-25 11:29] VITALS: BP 103/60; PULSE 69; RESP 17; TEMP 98; O2SAT 96
[2017-03-25 12:53] LABS: HEMOGLOBIN A1a 1.2 %; HEMOGLOBIN A1b 1.7 %; HEMOGLOBIN Ao 82.3 %; HEMOGLOBIN LA1C 3.9 %; HEMOGLOBIN P3 6.1 %
[2017-03-25] MEDS: LACTOBACILLUS ACIDOPHILUS TAB PO SCH ×2 (13:41→18:15)
[2017-03-25 13:44] LABS: SCAN/DIFF AUTO DIFF CONFIRMED
[2017-03-25 16:18] VITALS: BP 114/62; PULSE 55; RESP 17; TEMP 98.5; O2SAT 98
[2017-03-25 20:30] VITALS: BP 109/64; PULSE 59; RESP 18; TEMP 98.4; O2SAT 100
[2017-03-25] MEDS: oxyCODONE/ACETAMINOPHEN 10 MG/325 MG TAB PO PRN (21:15)
[2017-03-25] MEDS: ZOLPIDEM TARTRATE 5 MG TAB PO PRN (21:15)
[2017-03-26] VITALS: BP 111/59; PULSE 54; RESP 18; TEMP 98.4; O2SAT 97
[2017-03-26] MEDS: PIPERACIL-TAZO 4.5 GM PREMIX 100 ML IV SCH ×4 (00:02→19:57)
[2017-03-26] MEDS: SODIUM CHLOR 0.9% 1000 ML INJ 1,000 ML IV SCH ×3 (00:03→13:53)
[2017-03-26] MEDS: MORPHINE SULFATE 4 MG/ML INJ IV PRN ×2 (00:03→14:16)
[2017-03-26] MEDS: HEPARIN SODIUM - SQ 10,000 UNITS/ML VIAL SQ SCH ×2 (04:43→19:58)
[2017-03-26] MEDS: VANCOMYCIN INJ 850 MG in SODIUM CHLOR 0.9% 250 ML INJ 250 ML IV SCH ×2 (04:43→23:56)
[2017-03-26 04:47] LABS: AUTOMATED NEUTROPHIL # 8.5 TH/MM3 (1.8-7.7); BASOPHIL % 0.2 % (0.0-2.0); EOSINOPHIL % 0.3 % (0.0-4.0); HEMATOCRIT 33.7 % (35.0-46.0); HEMO FLAGS DIFF FINAL; LYMPH % 23.7 % (9.0-44.0); LYMPHOCYTE # 2.8 TH/MM3 (1.0-4.8); MEAN CELL VOLUME 95.7 FL (80.0-100.0); MEAN CORPUSCULAR HEMOGLOBIN 32.4 PG (27.0-34.0); MEAN CORPUSCULAR HGB CONC 33.9 % (32.0-36.0); MONO % 5.1 % (0.0-8.0); NEUT % 70.7 % (16.0-70.0); PLATELET COUNT 182 TH/MM3 (150-450); RED BLOOD COUNT 3.52 MIL/MM3 (4.00-5.30); RED CELL DISTRIBUTION WIDTH 12.6 % (11.6-17.2)
[2017-03-26 05:04] VITALS: BP 104/57; PULSE 46; RESP 18; TEMP 98.1; O2SAT 96
[2017-03-26 05:15] LABS: ALKALINE PHOSPHATASE 56 U/L (45-117); ALT (GPT) 15 U/L (10-53); ANION GAP 7 MEQ/L (5-15); AST (GOT) 10 U/L (15-37); BICARBONATE 28.1 MEQ/L (21.0-32.0); BLOOD UREA NITROGEN 11 MG/DL (7-18); CHLORIDE 107 MEQ/L (98-107); GLOMERULAR FILTRATION RATE 101 ML/MIN (>89); MAGNESIUM 1.9 MG/DL (1.5-2.5); POTASSIUM 3.6 MEQ/L (3.5-5.1); SODIUM (NA) 142 MEQ/L (136-145); TOTAL BILIRUBIN ADULT 0.1 MG/DL (0.2-1.0)
[2017-03-26] MEDS: oxyCODONE/ACETAMINOPHEN 10 MG/325 MG TAB PO PRN ×2 (06:50→18:17)
[2017-03-26 08:06] VITALS: BP 110/60; PULSE 58; RESP 18; TEMP 98.4; O2SAT 96
[2017-03-26] MEDS: NICOTINE 14 MG/24 HR PATCH T-DERMAL SCH (09:00)
[2017-03-26] MEDS: SODIUM CHLORIDE 0.9% FLUSH 10 ML FLUSH IV FLUSH SCH ×2 (09:00→22:25)
[2017-03-26] MEDS: REMOVE OLD PATCH T-DERMAL SCH (09:00)
[2017-03-26] MEDS: DOCUSATE SODIUM 50 MG/SENNA 8.6 MG TAB PO SCH ×2 (09:20→22:25)
[2017-03-26] MEDS: LACTOBACILLUS ACIDOPHILUS TAB PO SCH ×3 (09:21→19:58)
[2017-03-26 10:57] VITALS: BP 96/54; PULSE 57; RESP 16; TEMP 98.9; O2SAT 94
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
[2017-03-26 15:02] VITALS: BP 111/58; PULSE 57; RESP 15; TEMP 97.9; O2SAT 95
[2017-03-26 20:43] VITALS: BP 108/57; PULSE 53; RESP 18; TEMP 99; O2SAT 97
[2017-03-26] MEDS ORDERED: PHARMACY ORDERED LAB ONE (21:45)
[2017-03-26] MEDS: ZOLPIDEM TARTRATE 5 MG TAB PO PRN (22:24)
[2017-03-27] VITALS (7 sets, daily range): BP systolic 100–130; BP diastolic 51–80; PULSE 45–65; RESP 16–18; TEMP 97.2–98.1; O2SAT 96–98
[2017-03-27] MEDS: PIPERACIL-TAZO 4.5 GM PREMIX 100 ML IV SCH ×5 (01:13→23:31)
[2017-03-27] MEDS: SODIUM CHLOR 0.9% 1000 ML INJ 1,000 ML IV SCH ×3 (05:00→23:33)
[2017-03-27] MEDS: HEPARIN SODIUM - SQ 10,000 UNITS/ML VIAL SQ SCH ×2 (06:00→18:45)
[2017-03-27 07:39] LABS: AUTOMATED NEUTROPHIL # 3.6 TH/MM3 (1.8-7.7); BASOPHIL % 0.4 % (0.0-2.0); EOSINOPHIL # 0.1 TH/MM3 (0-0.4); EOSINOPHIL % 1.8 % (0.0-4.0); HEMATOCRIT 36.3 % (35.0-46.0); HEMO FLAGS DIFF FINAL; LYMPH % 44.9 % (9.0-44.0); LYMPHOCYTE # 3.6 TH/MM3 (1.0-4.8); MEAN CELL VOLUME 95.3 FL (80.0-100.0); MEAN CORPUSCULAR HEMOGLOBIN 32.6 PG (27.0-34.0); MEAN CORPUSCULAR HGB CONC 34.2 % (32.0-36.0); MONO % 7.6 % (0.0-8.0); NEUT % 45.3 % (16.0-70.0); PLATELET COUNT 191 TH/MM3 (150-450); RED BLOOD COUNT 3.81 MIL/MM3 (4.00-5.30); RED CELL DISTRIBUTION WIDTH 12.6 % (11.6-17.2)
[2017-03-27 08:00] LABS: ANION GAP 6 MEQ/L (5-15); AST (GOT) 13 U/L (15-37); BICARBONATE 28.9 MEQ/L (21.0-32.0); BLOOD UREA NITROGEN 14 MG/DL (7-18); CHLORIDE 106 MEQ/L (98-107); GLOMERULAR FILTRATION RATE 82 ML/MIN (>89); MAGNESIUM 1.8 MG/DL (1.5-2.5); POTASSIUM 3.7 MEQ/L (3.5-5.1); SODIUM (NA) 141 MEQ/L (136-145)
[2017-03-27 08:03] LABS: ALKALINE PHOSPHATASE 52 U/L (45-117); ALT (GPT) 17 U/L (10-53); TOTAL BILIRUBIN ADULT 0.3 MG/DL (0.2-1.0)
[2017-03-27] MEDS: SODIUM CHLORIDE 0.9% FLUSH 10 ML FLUSH IV FLUSH SCH ×2 (09:00→21:00)
[2017-03-27] MEDS: NICOTINE 14 MG/24 HR PATCH T-DERMAL SCH (09:00)
[2017-03-27] MEDS: REMOVE OLD PATCH T-DERMAL SCH (09:00)
[2017-03-27] MEDS: LACTOBACILLUS ACIDOPHILUS TAB PO SCH ×3 (09:04→18:43)
[2017-03-27] MEDS: DOCUSATE SODIUM 50 MG/SENNA 8.6 MG TAB PO SCH ×2 (09:04→21:20)
[2017-03-27] MEDS: oxyCODONE/ACETAMINOPHEN 10 MG/325 MG TAB PO PRN ×3 (09:05→23:32)
--- NOTE | 2017-03-27 16:18 | HHI.PR ---
Subjective Remarks 51-year-old female presents to the emergency department for worsening left facial swelling and pain. Patient was seen here yesterday and was given prescription for clindamycin. However, she has taken 3 doses and symptoms have worsened. She does report a history of the same intermittently over the past 2 years. She has not followed up outpatient. Patient denies any fevers or chills. She reports worsening pain and swelling. She had jaw reconstruction surgery in the past and she believes this is the cause of the swelling. She has no other complaints at this time. She is not currently on any other medications other than clindamycin. 910 WAS STARTED ON VANCO AND ZOSYN SOME SLIGHT IMPROVEMENT ON THE LEFT SIDE DW RN AND PT SEEN WITH FEMALE RN IN ATTENDANCE 03-26 FACE IS ALOT LESS SWOLLEN ON THE LEFT SIDE HAS NOT SEEN ORAL MAXILLARY FACIAL YET- WILL RECONSULT HAS PAIN LEFT SIDE OF FACE,- HAS HISTORY OF TRAUMA AND HARDWARE IN FACE 03-27 PATIENT IS SCHEDULED FOR SURGERY TOMORROW DW RN AND PT TO HAVE I&D OF LEFT MAXILLARY AREA AND REMOVAL OF HARDWARE DW RN AND PT FULL ADMIT NOW Objective Vitals Vital Signs Date Time Temp Pulse Resp B/P (MAP) Pulse Ox O2 Delivery O2 Flow Rate FiO2 03/27/17 15:12 98.0 64 16 100/58 (72) 96 03/27/17 11:53 97.9 62 16 121/69 (86) 97 03/27/17 08:24 97.2 65 18 127/80 (96) 98 03/27/17 04:10 97.9 52 16 110/51 (70) 97 03/27/17 00:06 98.1 45 18 127/60 (82) 97 03/26/17 22:30 12 03/26/17 20:43 99.0 53 18 108/57 (74) 97 I/O 03/26/17 03/26/17 03/26/17 03/27/17 03/27/17 03/27/17 07:00 15:00 23:00 07:00 15:00 23:00 Intake Total 200 ml 1000 ml Balance 200 ml 1000 ml IV Total 200 ml 1000 ml Result Diagram: 03/27/17 0645 03/27/17 0645 Other Results Laboratory Tests Test 03/25/17 07:30 03/26/17 04:10 03/26/17 04:15 03/26/17 21:45 White Blood Count 10.5 TH/MM3 12.0 TH/MM3 Red Blood Count 4.02 MIL/MM3 3.52 MIL/MM3 Hemoglobin 13.2 GM/DL 11.4 GM/DL Hematocrit 38.6 % 33.7 % Mean Corpuscular Volume 95.8 FL 95.7 FL Mean Corpuscular Hemoglobin 32.7 PG 32.4 PG Mean Corpuscular Hemoglobin Concent 34.2 % 33.9 % Red Cell Distribution Width 12.6 % 12.6 % Platelet Count 178 TH/MM3 182 TH/MM3 Mean Platelet Volume 8.8 FL 8.7 FL Neutrophils (%) (Auto) 92.1 % 70.7 % Lymphocytes (%) (Auto) 5.7 % 23.7 % Monocytes (%) (Auto) 2.2 % 5.1 % Eosinophils (%) (Auto) 0.0 % 0.3 % Basophils (%) (Auto) 0.0 % 0.2 % Neutrophils # (Auto) 9.7 TH/MM3 8.5 TH/MM3 Lymphocytes # (Auto) 0.6 TH/MM3 2.8 TH/MM3 Monocytes # (Auto) 0.2 TH/MM3 0.6 TH/MM3 Eosinophils # (Auto) 0.0 TH/MM3 0.0 TH/MM3 Basophils # (Auto) 0.0 TH/MM3 0.0 TH/MM3 CBC Comment AUTO DIFF DIFF FINAL Differential Comment AUTO DIFF CONFIRMED Blood Urea Nitrogen 14 MG/DL 11 MG/DL Creatinine 0.58 MG/DL 0.62 MG/DL Random Glucose 245 MG/DL 140 MG/DL Total Protein 6.4 GM/DL 5.6 GM/DL Albumin 3.0 GM/DL 2.6 GM/DL Calcium Level 8.4 MG/DL 8.0 MG/DL Phosphorus Level 2.1 MG/DL 3.2 MG/DL Magnesium Level 2.0 MG/DL 1.9 MG/DL Alkaline Phosphatase 74 U/L 56 U/L Aspartate Amino Transf (AST/SGOT) 9 U/L 10 U/L Alanine Aminotransferase (ALT/SGPT) 18 U/L 15 U/L Total Bilirubin 0.3 MG/DL 0.1 MG/DL Sodium Level 139 MEQ/L 142 MEQ/L Potassium Level 3.9 MEQ/L 3.6 MEQ/L Chloride Level 105 MEQ/L 107 MEQ/L Carbon Dioxide Level 26.7 MEQ/L 28.1 MEQ/L Anion Gap 7 MEQ/L 7 MEQ/L Estimat Glomerular Filtration Rate 109 ML/MIN 101 ML/MIN Hemoglobin A1c 5.6 % Free Thyroxine 0.96 NG/DL Thyroid Stimulating Hormone 3rd Gen 0.307 uIU/ML Vancomycin Level Trough 5.0 MCG/ML Test 03/27/17 06:45 White Blood Count 8.0 TH/MM3 Red Blood Count 3.81 MIL/MM3 Hemoglobin 12.4 GM/DL Hematocrit 36.3 % Mean Corpuscular Volume 95.3 FL Mean Corpuscular Hemoglobin 32.6 PG Mean Corpuscular Hemoglobin Concent 34.2 % Red Cell Distribution Width 12.6 % Platelet Count 191 TH/MM3 Mean Platelet Volume 8.4 FL Neutrophils (%) (Auto) 45.3 % Lymphocytes (%) (Auto) 44.9 % Monocytes (%) (Auto) 7.6 % Eosinophils (%) (Auto) 1.8 % Basophils (%) (Auto) 0.4 % Neutrophils # (Auto) 3.6 TH/MM3 Lymphocytes # (Auto) 3.6 TH/MM3 Monocytes # (Auto) 0.6 TH/MM3 Eosinophils # (Auto) 0.1 TH/MM3 Basophils # (Auto) 0.0 TH/MM3 CBC Comment DIFF FINAL Differential Comment Blood Urea Nitrogen 14 MG/DL Creatinine 0.74 MG/DL Random Glucose 84 MG/DL Total Protein 5.6 GM/DL Albumin 2.7 GM/DL Calcium Level 8.6 MG/DL Phosphorus Level 4.1 MG/DL Magnesium Level 1.8 MG/DL Alkaline Phosphatase 52 U/L Aspartate Amino Transf (AST/SGOT) 13 U/L Alanine Aminotransferase (ALT/SGPT) 17 U/L Total Bilirubin 0.3 MG/DL Sodium Level 141 MEQ/L Potassium Level 3.7 MEQ/L Chloride Level 106 MEQ/L Carbon Dioxide Level 28.9 MEQ/L Anion Gap 6 MEQ/L Estimat Glomerular Filtration Rate 82 ML/MIN Imaging Last Impressions Maxillofacial CT 03/24/17 0000 Signed Impressions: Service Date/Time: Friday, March 24, 2017 14:02 - CONCLUSION: 1. Left-sided peripheral enhancing premaxillary fluid collection suggesting abscess in the proper clinical setting. It abuts the area of left-sided maxillary surgical hardware. 2. Small left maxillary sinus air-fluid level. Small lateral bone defect left maxillary sinus unchanged from prior study. Joshua Solitario MD Objective Remarks GENERAL: This is a well-nourished, well-developed patient, in no apparent distress. SKIN: No rashes, ecchymoses or lesions. Cool and dry. RASH AND SWELLING LEFT SIDE ALMOST RESOLVED AND BACK TO BASELINE HEAD: Atraumatic. Normocephalic. No temporal or scalp tenderness. EYES: Pupils equal round and reactive. Extraocular motions intact. No scleral icterus. No injection or drainage. ENT: Nose without bleeding, purulent drainage or septal hematoma. Throat without erythema, tonsillar hypertrophy or exudate. Uvula midline. Airway patent. NECK: Trachea midline. No JVD or lymphadenopathy. Supple, nontender, no meningeal signs. CARDIOVASCULAR: Regular rate and rhythm without murmurs, gallops, or rubs. S1, S2 NO S3 OR S4 NO HEAVE OR THRILL RESPIRATORY: Clear to auscultation. Breath sounds equal bilaterally. No wheezes , rales, or rhonchi. GASTROINTESTINAL: Abdomen soft, non-tender, nondistended. No hepato-splenomegaly , or palpable masses. No guarding. MUSCULOSKELETAL: Extremities without clubbing, cyanosis, or edema. No joint tenderness, effusion, or edema noted. No calf tenderness. Negative Homans sign bilaterally. NEUROLOGICAL: Awake and alert. Cranial nerves II through XII intact. Motor and sensory grossly within normal limits. Five out of 5 muscle strength in all muscle groups. Normal speech. INSIGHT AND JUDGEMENT ARE GOOD MOOD AND BEHAVIOR ARE APPROPRIATE Medications and IVs Current Medications Ketorolac Tromethamine (Toradol Inj) 30 mg ONCE ONCE IV PUSH Last administered on 03/24/17 13:44; Start 03/24/17 at 13:45; Stop 03/24/17 at 13:46; Status DC Iohexol (Omnipaque 350 Inj) 100 ml STK-MED ONCE IV PUSH Last administered on 14:26; Start 03/24/17 at 14:26; Stop 03/24/17 at 14:27; Status DC Clindamycin Phosphate 600 mg/ Sodium Chloride 104 ml @ 208 mls/hr ONCE ONCE IV ; Start 03/24/17 at 15:45; Stop 03/24/17 at 16:14; Status DC Vancomycin HCl 1000 mg/Sodium Chloride 250 ml @ 250 mls/hr ONCE ONCE IV Last administered on 03/24/17 16:00; Start 03/24/17 at 15:45; Stop 03/24/17 at 16:44; Status DC Dexamethasone Sodium Phosphate (Decadron Inj) 8 mg ONCE ONCE IV PUSH Last administered on 03/24/17 17:34; Start 03/24/17 at 16:00; Stop 03/24/17 at 16:01; Status DC Sodium Chloride 1,000 ml @ 100 mls/hr Q10H IV Last administered on 03/27/17 15:35; Start 03/24/17 at 17:00 Sodium Chloride (NS Flush) 2 ml UNSCH PRN IV FLUSH FLUSH AFTER USING IV ACCESS ; Start 03/24/17 at 16:30 Sodium Chloride (NS Flush) 2 ml BID IV FLUSH Last administered on 03/26/17 22: 25; Start 03/24/17 at 21:00 Acetaminophen (Tylenol) 650 mg Q4H PRN PO TEMP > 100.4; Start 03/24/17 at 16:30 Ondansetron HCl (Zofran Inj) 4 mg Q6H PRN IVP NAUSEA OR VOMITING; Start at 16:30 Prochlorperazine (Compazine Supp) 25 mg Q12H PRN RECTAL NAUSEA OR VOMITING; Start 03/24/17 at 16:30 Zolpidem Tartrate (Ambien) 5 mg HS PRN PO INSOMNIA Last administered on 22:24; Start 03/24/17 at 16:30 Heparin Sodium (Porcine) (Heparin Inj) 5,000 units Q12H SQ Last administered on 03/26/17 19:58; Start 03/24/17 at 18:00 Acetaminophen (Tylenol) 650 mg Q6H PRN PO PAIN SCALE 1 TO 2; Start 03/24/17 at 16:30 Oxycodone/ Acetaminophen (Percocet 5-325 Mg) 1 tab Q6H PRN PO PAIN SCALE 3 TO 5; Start 03/24/17 at 16:30 Oxycodone/ Acetaminophen (Percocet 10-325 Mg) 1 tab Q6H PRN PO PAIN SCALE 6 TO 10 Last administered on 03/27/17 09:05; Start 03/24/17 at 16:30 Morphine Sulfate (Morphine Inj) 2 mg Q3H PRN IV Pain 3-5; if unable to take PO Last administered on 03/26/17 22:25; Start 03/24/17 at 16:30 Morphine Sulfate (Morphine Inj) 4 mg Q3H PRN IV Pain 6-10;if unable to take PO Last administered on 03/26/17 14:16; Start 03/24/17 at 16:30 Naloxone HCl (Narcan Inj) 0.4 mg UNSCH PRN IV SEE LABEL COMMENTS; Start at 16:30 Senna/Docusate Sodium (Patricia-Colace) 1 tab BID PO Last administered on 09:04; Start 03/24/17 at 21:00 Magnesium Hydroxide (Milk Of Magnesia Liq) 30 ml Q12H PRN PO MILD - MODERATE CONSTIPATION; Start 03/24/17 at 16:30 Sennosides (Senokot) 17.2 mg Q12H PRN PO MODERATE - SEVERE CONSTIPATION; Start 03/24/17 at 16:30 Bisacodyl (Dulcolax Supp) 10 mg DAILY PRN RECTAL SEVERE CONSITIPATION; Start at 16:30 Lactulose (Lactulose Liq) 30 ml DAILY PRN PO SEVERE CONSITIPATION; Start at 16:30 Nicotine (Habitrol 14 Mg Patch.24 Hr) 1 patch ONCE ONCE T-DERMAL ; Start at 16:30; Stop 03/24/17 at 16:42; Status DC Nicotine (Habitrol 14 Mg Patch.24 Hr) 1 patch DAILY T-DERMAL Last administered on 03/25/17 08:04; Start 03/25/17 at 09:00 Miscellaneous Information 1 DAILY T-DERMAL Last administered on 03/25/17 08:05 ; Start 03/25/17 at 09:00 Dexamethasone Sodium Phosphate (Decadron Inj) 8 mg ONCE ONCE IV PUSH Last administered on 03/25/17 00:20; Start 03/25/17 at 00:00; Stop 03/25/17 at 00:01 ; Status DC Pharmacy Profile Note 0 ml @ 0 mls/hr UNSCH OTHER ; Start 03/24/17 at 16:30 Clonidine (Catapres) 0.1 mg Q4H PRN PO SBP>160, DBP>90; Start 03/24/17 at 16:30 Piperacillin Sod/ Tazobactam Sod 100 ml @ 200 mls/hr Q6H IV Last administered on 03/27/17 13:02; Start 03/24/17 at 18:00 Vancomycin HCl 850 mg/Sodium Chloride 258.5 ml @ 250 mls/hr Q18H IV Last administered on 03/26/17 23:56; Start 03/25/17 at 10:00 Miscellaneous Information SPECIFIC LAB TO BE SHUBHAM... ONCE ONCE .XX Last administered on 03/26/17 21:45; Start 03/26/17 at 21:45; Stop 03/26/17 at 21:46 ; Status DC Lactobacillus Acidophilus (Lactinex) 1 tab TID PO Last administered on 13:02; Start 03/25/17 at 13:00 Urinary Catheter: No Vascular Central Line Catheter: No A/P Problem List: (1) Failure of outpatient treatment ICD Code: Z78.9 - Other specified health status (2) Tobacco abuse ICD Code: Z72.0 - Tobacco use (3) Dental abscess ICD Code: K04.7 - Periapical abscess without sinus Status: Acute (4) Facial abscess ICD Code: L02.01 - Cutaneous abscess of face Status: Acute Assessment and Plan LEFT FACIAL SWELLING/CELLULITIS/ABSCESS WITH FAILED OUTPATIENT THERAPY LEFT SIDED PERIPHERAL ENHANCING PREMAXILLARY FLUID COLLECTION SUGGESTING ABSCESS CONTINUE ON VANCO AND ZOSYN PHARMACY TO DOSE THE VANCOMYCIN CRANIAL/FACIAL SURGEON WILL SEE AND CONSULT- AWAIT FACIAL SURGERY EVAL? TOBACCO ABUSE-- NICODERM HX BILATERAL BREAST AUGMENTATION -STABLE HX OF FACIAL RECONSTRUCTIVE SURGERIES- WITH HARDWARE IN PLACE- MAY CAUSE THE ISSUES VANCO , ZOSYN, DECADRON AM LABS DW RN AND PT AND ER AWAIT CRANIAL/FACIAL SURGERY EVAL CONTINUE ZOSYN AND VANCO LACTINEX CONTINUE ORAL PAIN CONTROL FOR SURGERY ON 03-28 WITH CRANIAL/FACIAL SURGERY FULL ADMIT AM LABS Discharge Planning AWAIT SURGERY Darrian Schulte DO Mar 27, 2017 16:18
[2017-03-27] MEDS: VANCOMYCIN INJ 850 MG in SODIUM CHLOR 0.9% 250 ML INJ 250 ML IV SCH (17:42)
[2017-03-27] MEDS: ZOLPIDEM TARTRATE 5 MG TAB PO PRN (21:22)
--- NOTE | 2017-03-27 22:11 | MB ---
cc: LISSET AGUIRRE D.D.S. DATE OF 1965 DATE OF ADMISSION 03/24/2017 DATE OF CONSULTATION 03/26/2017 HISTORY I was asked to evaluate a 51-year-old white female. 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 According to her history she had orthognathic surgery back in the in [facility] where she had a Lefort I osteotomy and sagittal split osteotomy. Since that subsequent time in the last four to five years she had repeated infections with the screw coming out of her cheek approximately a year ago. She has been on and off antibiotics, in and out of hospitals for the past three or four years. She now presents for repeated infection of the left maxillary area. CT scan shows infected left hardware with mobile screws. The patient had been given some IV antibiotics to allow the swelling to come down, now we are going to take her to the operating room to remove the infected hardware and debride the left maxilla. DG Momin /9:25 AM /9:58 PM
[2017-03-28 03:45] VITALS: BP 120/70; PULSE 60; RESP 18; TEMP 98.2; O2SAT 98
[2017-03-28] MEDS: HEPARIN SODIUM - SQ 10,000 UNITS/ML VIAL SQ SCH ×3 (06:00→18:38)
[2017-03-28] MEDS: PIPERACIL-TAZO 4.5 GM PREMIX 100 ML IV SCH ×3 (06:29→17:27)
[2017-03-28] MEDS: oxyCODONE/ACETAMINOPHEN 10 MG/325 MG TAB PO PRN ×3 (06:30→18:37)
[2017-03-28 07:36] VITALS: BP 122/61; PULSE 50; RESP 16; TEMP 98; O2SAT 98
[2017-03-28] MEDS: SODIUM CHLORIDE 0.9% FLUSH 10 ML FLUSH IV FLUSH SCH ×2 (09:00→20:52)
[2017-03-28] MEDS: REMOVE OLD PATCH T-DERMAL SCH (09:00)
[2017-03-28] MEDS: NICOTINE 14 MG/24 HR PATCH T-DERMAL SCH (09:00)
[2017-03-28] MEDS: DOCUSATE SODIUM 50 MG/SENNA 8.6 MG TAB PO SCH ×2 (09:58→20:49)
[2017-03-28] MEDS: LACTOBACILLUS ACIDOPHILUS TAB PO SCH ×3 (09:58→18:38)
[2017-03-28] MEDS: VANCOMYCIN INJ 850 MG in SODIUM CHLOR 0.9% 250 ML INJ 250 ML IV SCH (09:59)
--- NOTE | 2017-03-28 10:00 | HHI.PR ---
Subjective Remarks Follow-up for infected left facial hardware. The patient is doing well today. Going to OR for hardware removal later this afternoon. She is bit nervous for the surgery. No fevers or chills. Pain is currently controlled, but she is concerned about pain control after the surgery. Objective Vitals Vital Signs Date Time Temp Pulse Resp B/P (MAP) Pulse Ox O2 Delivery O2 Flow Rate FiO2 03/28/17 07:36 98.0 50 16 122/61 (81) 98 03/28/17 03:45 98.2 60 18 120/70 (87) 98 03/28/17 00:32 18 03/27/17 23:39 98.0 58 18 118/64 (82) 97 03/27/17 19:32 97.9 57 18 130/72 (91) 97 03/27/17 15:12 98.0 64 16 100/58 (72) 96 03/27/17 11:53 97.9 62 16 121/69 (86) 97 I/O 03/27/17 03/27/17 03/27/17 03/28/17 03/28/17 03/28/17 07:00 15:00 23:00 07:00 15:00 23:00 Intake Total 200 ml 1250 ml Balance 200 ml 1250 ml IV Total 200 ml 1250 ml Result Diagram: 03/27/17 0645 03/27/17 0645 Imaging Last Impressions Maxillofacial CT 03/24/17 0000 Signed Impressions: Service Date/Time: Friday, March 24, 2017 14:02 - CONCLUSION: 1. Left-sided peripheral enhancing premaxillary fluid collection suggesting abscess in the proper clinical setting. It abuts the area of left-sided maxillary surgical hardware. 2. Small left maxillary sinus air-fluid level. Small lateral bone defect left maxillary sinus unchanged from prior study. Joshua Solitario MD Objective Remarks GENERAL: Well-developed well-nourished. In no acute distress. SKIN: Warm and dry. No lesions noted. HEENT: Normocephalic. Pupils equal and round. Mild left-sided facial swelling. CARDIOVASCULAR: Regular rate and rhythm. No murmur appreciated. RESPIRATORY: No accessory muscle use. Clear to auscultation. Breath sounds equal bilaterally. GASTROINTESTINAL: Abdomen soft, non-tender, nondistended. Bowel sounds x4. MUSCULOSKELETAL: No obvious deformities. No clubbing or cyanosis. No edema. NEUROLOGICAL: Awake and alert. No focal neurological deficits. Moves upper and lower extremities spontaneously. Normal speech. PSYCHIATRIC: Appropriate mood and affect; insight and judgment normal. A/P Problem List: (1) Failure of outpatient treatment ICD Code: Z78.9 - Other specified health status Status: Acute (2) Tobacco abuse ICD Code: Z72.0 - Tobacco use Status: Chronic (3) Dental abscess ICD Code: K04.7 - Periapical abscess without sinus Status: Acute (4) Facial abscess ICD Code: L02.01 - Cutaneous abscess of face Status: Acute Assessment and Plan 51-year-old female with past medical history of facial hardware placement in the s Infected left facial hardware and abscess: Facial CT suggested left premaxillary abscess abutting the area of surgical hardware. Failed outpatient antibiotic therapy with clindamycin. Afebrile. Leukocytosis has resolved. -Maxillofacial surgery consulted, planning on hardware removal -Continue IV vancomycin and Zosyn for now -Pain control with Percocet and IV morphine Decreased TSH: TSH slightly low at 0.307. T4 within normal limits. Possibly reactive secondary to the above. Follow-up as outpatient for repeat thyroid function testing in 4-6 weeks. Hyperglycemia: Likely secondary to Decadron as resolved when Decadron was discontinued. Hemoglobin A1c 5.6. Tobacco abuse: Cessation counseling. Nicotine patch. DVT prophylaxis: SCDs Discharge Planning Discharge planning when cleared by maxillofacial surgery. Jose G Shi Mar 28, 2017 10:00
[2017-03-28 10:39] LABS: BASOPHIL % 0.6 % (0.0-2.0); EOSINOPHIL # 0.2 TH/MM3 (0-0.4); EOSINOPHIL % 2.9 % (0.0-4.0); HEMATOCRIT 40.4 % (35.0-46.0); HEMO FLAGS DIFF FINAL; LYMPH % 39.2 % (9.0-44.0); LYMPHOCYTE # 2.5 TH/MM3 (1.0-4.8); MEAN CORPUSCULAR HEMOGLOBIN 32.5 PG (27.0-34.0); MEAN CORPUSCULAR HGB CONC 33.8 % (32.0-36.0); MONO % 8.7 % (0.0-8.0); NEUT % 48.6 % (16.0-70.0); PLATELET COUNT 213 TH/MM3 (150-450); RED CELL DISTRIBUTION WIDTH 12.6 % (11.6-17.2); WHITE BLOOD COUNT 6.3 TH/MM3 (4.0-11.0)
[2017-03-28 10:53] LABS: ALKALINE PHOSPHATASE 55 U/L (45-117); ALT (GPT) 33 U/L (10-53); ANION GAP 7 MEQ/L (5-15); AST (GOT) 33 U/L (15-37); BLOOD UREA NITROGEN 11 MG/DL (7-18); CHLORIDE 105 MEQ/L (98-107); GLOMERULAR FILTRATION RATE 116 ML/MIN (>89); POTASSIUM 3.9 MEQ/L (3.5-5.1); SODIUM (NA) 141 MEQ/L (136-145); TOTAL BILIRUBIN ADULT 0.2 MG/DL (0.2-1.0)
[2017-03-28] MEDS: SODIUM CHLOR 0.9% 1000 ML INJ 1,000 ML IV SCH ×2 (11:00→20:53)
[2017-03-28 11:57] VITALS: BP 133/78; PULSE 58; RESP 18; TEMP 98.7; O2SAT 98
[2017-03-28] MEDS ORDERED: PROPOFOL 200 MG/20 ML AMP IV ONE (12:00)
[2017-03-28] MEDS ORDERED: ONDANSETRON HCL 4 MG/2 ML VIAL IV PUSH ONE (12:00)
[2017-03-28] MEDS ORDERED: MIDAZOLAM HCL 2 MG/2 ML VIAL IV ONE (12:00)
[2017-03-28] MEDS ORDERED: FAMOTIDINE 20 MG/2 ML VIAL ONE (14:19)
[2017-03-28] MEDS ORDERED: ARTIFICIAL TEARS OPTH OINT 3.5 APPLIC/3.5 GM TUBO ONE (14:19)
[2017-03-28] MEDS ORDERED: ACETAMINOPHEN 1000 MG/100 ML 100 ML IV ONE (14:19)
[2017-03-28] MEDS ORDERED: LIDOCAINE 2%/EPINEPHrine PF 1:200,000 20ML SDV ONE (14:24)
[2017-03-28] MEDS ORDERED: methylPREDNISolone SOD SUCC 125 MG/2 ML VIAL ONE (14:24)
[2017-03-28] MEDS ORDERED: CHLORHEXIDINE GLUCONATE 0.12% 15 ML CUP ONE (14:30)
[2017-03-28] MEDS ORDERED: MIDAZOLAM HCL 2 MG/2 ML VIAL ONE (14:37)
[2017-03-28] MEDS ORDERED: SUGAMMADEX SODIUM 200 MG/2 ML VIAL IV PUSH ONE ×2 (14:43)
[2017-03-28] MEDS ORDERED: DO NOT ADM ANY ANTICOAGULANT DRUGS PRN (15:31)
[2017-03-28] MEDS ORDERED: *morphine SULFATE 8 MG/ML PERIprocedure ONLY ONE ×2 (15:47→16:12)
[2017-03-28] MEDS ORDERED: DEXT 5%-NACL 0.45% 1000 ML INJ 1,000 ML ONE (15:47)
[2017-03-28] MEDS: DEXT 5%-NACL 0.9% 1000 ML INJ 1,000 ML IV SCH ×2 (16:00→16:19)
[2017-03-28 18:35] VITALS: BP 125/69; PULSE 89; RESP 18; TEMP 96.5; O2SAT 96
[2017-03-28 20:00] VITALS: BP 130/74; PULSE 66; RESP 20; TEMP 97.2; O2SAT 96
[2017-03-28] MEDS: ZOLPIDEM TARTRATE 5 MG TAB PO PRN (20:49)
[2017-03-28 22:20] VITALS: O2SAT 96
[2017-03-29] VITALS: BP 114/66; PULSE 60; RESP 20; TEMP 97.1; O2SAT 97
[2017-03-29] MEDS: oxyCODONE/ACETAMINOPHEN 10 MG/325 MG TAB PO PRN ×2 (00:15→05:46)
[2017-03-29] MEDS: PIPERACIL-TAZO 4.5 GM PREMIX 100 ML IV SCH ×2 (00:16→05:47)
[2017-03-29] MEDS ORDERED: PHARMACY ORDERED LAB ONE (03:45)
[2017-03-29] MEDS: VANCOMYCIN INJ 850 MG in SODIUM CHLOR 0.9% 250 ML INJ 250 ML IV SCH (04:12)
[2017-03-29] MEDS: HEPARIN SODIUM - SQ 10,000 UNITS/ML VIAL SQ SCH (04:16)
[2017-03-29] MEDS: SODIUM CHLOR 0.9% 1000 ML INJ 1,000 ML IV SCH (05:48)
[2017-03-29 08:00] VITALS: BP 133/69; PULSE 51; RESP 19; TEMP 97.3; O2SAT 97
[2017-03-29 08:53] VITALS: O2SAT 94
[2017-03-29] MEDS: SODIUM CHLORIDE 0.9% FLUSH 10 ML FLUSH IV FLUSH SCH (09:00)
[2017-03-29] MEDS: REMOVE OLD PATCH T-DERMAL SCH (09:00)
[2017-03-29] MEDS: NICOTINE 14 MG/24 HR PATCH T-DERMAL SCH (09:00)
[2017-03-29] MEDS: DOCUSATE SODIUM 50 MG/SENNA 8.6 MG TAB PO SCH (09:24)
[2017-03-29] MEDS: LACTOBACILLUS ACIDOPHILUS TAB PO SCH (09:24)
[2017-03-29] MEDS ORDERED: OXYC1TAB35 PO (09:29)
[2017-03-29] MEDS ORDERED: oxyCODONE/ACETAMINOPHEN 7.5 MG/325 MG TAB PO PRN (09:30)
[2017-03-29] MEDS ORDERED: DOXY100C PO (09:32)
[2017-03-29] MEDS ORDERED: AUGM875T3 PO (09:32)
--- NOTE | 2017-03-29 09:33 | HHI.DS ---
Discharge Summary Admission Date Mar 27, 2017 at 4:19 pm Discharge Date: Mar 29, 2017 Admitting Diagnosis facial abscess (1) Failure of outpatient treatment ICD Code: Z78.9 - Other specified health status Status: Acute (2) Tobacco abuse ICD Code: Z72.0 - Tobacco use Status: Chronic (3) Dental abscess ICD Code: K04.7 - Periapical abscess without sinus Status: Acute (4) Facial abscess ICD Code: L02.01 - Cutaneous abscess of face Status: Acute Procedures Removal of infected hardware and debridement of left maxilla. 03/28/2017. Brief History - From Admission 51-year-old female presents to the emergency department for worsening left facial swelling and pain. Patient was seen here yesterday and was given prescription for clindamycin. However, she has taken 3 doses and symptoms have worsened. She does report a history of the same intermittently over the past 2 years. She has not followed up outpatient. Patient denies any fevers or chills. She reports worsening pain and swelling. She had jaw reconstruction surgery in the past and she believes this is the cause of the swelling. She has no other complaints at this time. She is not currently on any other medications other than clindamycin. CBC/BMP: 03/28/17 0910 03/28/17 0910 Significant Findings Laboratory Tests Test 03/26/17 21:45 03/27/17 06:45 03/28/17 09:10 03/29/17 04:10 Red Blood Count 3.81 MIL/MM3 (4.00-5.30) Lymphocytes (%) (Auto) 44.9 % (9.0-44.0) Total Protein 5.6 GM/DL (6.4-8.2) 5.8 GM/DL (6.4-8.2) Albumin 2.7 GM/DL (3.4-5.0) 2.9 GM/DL (3.4-5.0) Aspartate Amino Transf (AST/SGOT) 13 U/L (15-37) Estimat Glomerular Filtration Rate 82 ML/MIN (>89) Monocytes (%) (Auto) 8.7 % (0.0-8.0) Imaging Last Impressions Maxillofacial CT 03/24/17 0000 Signed Impressions: Service Date/Time: Friday, March 24, 2017 14:02 - CONCLUSION: 1. Left-sided peripheral enhancing premaxillary fluid collection suggesting abscess in the proper clinical setting. It abuts the area of left-sided maxillary surgical hardware. 2. Small left maxillary sinus air-fluid level. Small lateral bone defect left maxillary sinus unchanged from prior study. Joshua Solitario MD PE at Discharge GENERAL: Well-developed well-nourished. In no acute distress. SKIN: Warm and dry. No lesions noted. HEENT: Normocephalic. Pupils equal and round. Mild left-sided facial swelling. CARDIOVASCULAR: Regular rate and rhythm. No murmur appreciated. RESPIRATORY: No accessory muscle use. Clear to auscultation. Breath sounds equal bilaterally. GASTROINTESTINAL: Abdomen soft, non-tender, nondistended. Bowel sounds x4. MUSCULOSKELETAL: No obvious deformities. No clubbing or cyanosis. No edema. NEUROLOGICAL: Awake and alert. No focal neurological deficits. Moves upper and lower extremities spontaneously. Normal speech. PSYCHIATRIC: Appropriate mood and affect; insight and judgment normal. Pt update on day of discharge Patient is doing well. Her left facial pain is well controlled. No fever, chills. Hospital Course 51-year-old female with past medical history of facial hardware placement in the 90s Infected left facial hardware and abscess: Facial CT suggested left premaxillary abscess abutting the area of surgical hardware. Failed outpatient antibiotic therapy with clindamycin. Afebrile. Leukocytosis has resolved. -Maxillofacial surgery consulted, planning on hardware removal -Continue IV vancomycin and Zosyn in the hospital. We will continue Doxycycline and Augmentin on discharge. -Pain control with Percocet and IV morphine -Patient is strongly advised to follow up with her oral surgeon. Decreased TSH: TSH slightly low at 0.307. T4 within normal limits. Possibly reactive secondary to the above. Follow-up as outpatient for repeat thyroid function testing in 4-6 weeks. Hyperglycemia: Likely secondary to Decadron as resolved when Decadron was discontinued. Hemoglobin A1c 5.6. Tobacco abuse: Cessation counseling. Nicotine patch. DVT prophylaxis: SCDs Pt Condition on Discharge: Good Discharge Disposition: Discharge Home Discharge Time: > 30 minutes Discharge Instructions DIET: Follow Instructions for: Full Liquid Diet Additional Diet Instructions: Gradually advance diet. Activities you can perform: Regular-No Restrictions Follow up Referrals: Oral Maxillary Surgery - 1 Week with Dex Loyd DDS PCP Follow-up - 1 Week New Medications: Amoxicillin-Clavulanate (Augmentin) 875-125 Mg Tab 1 TAB PO BID for Infection, #20 TAB 0 Refills Doxycycline Hyclate (Doxycycline Hyclate) 100 Mg Cap 100 MG PO BID for Infection, #20 CAP 0 Refills Oxycodone-Acetaminophen (Oxycodone-Acetaminophen) 7.5-325 mg Tab 1 TAB PO Q6HR PRN for PAIN SCALE 5 TO 10, #30 TAB Discontinued Medications: Clindamycin (Clindamycin) 300 Mg Cap 300 MG PO TID for Infection, #21 CAP 0 Refills Alondra Irene DO Mar 29, 2017 9:33 am
--- NOTE | 2017-03-29 13:43 | MP ---
cc: DEX AGUIRRE D.D.S. DATE OF SURGERY 03/28/2017 DATE OF ADMISSION 03/27/2017 DATE OF 1965 PREOPERATIVE DIAGNOSIS Left infected hardware and maxilla. The patient had orthodontic surgery approximately back in the s. She subsequently has been repeated infection in the left maxilla for the last four or five years. She had some screws come out from her left cheek area. She has a little bit of a fistulous tract there where the skin is thin now and is reinfected again. POSTOPERATIVE DIAGNOSIS Left infected hardware and maxilla. The patient had orthodontic surgery approximately back in the 90s. She subsequently has been repeated infection in the left maxilla for the last four or five years. She had some screws come out from her left cheek area. She has a little bit of a fistulous tract there where the skin is thin now and is reinfected again. PROCEDURE PERFORMED 1. Removal of infected hardware 2. Debridement of left maxilla with a culture SURGEON Dex Aguirre, DG TRANSPORTATION ENGINEER Cart ANESTHESIA General anesthesia FLUIDS 600 cc of crystalloid SPECIMENS No specimens ESTIMATED BLOOD LOSS Less than 10 cc JUSTIFICATION Ms. Medina again had surgery back in the mid for a Le Forte I ostotomy, as well as a sagittal split. In the last four to five years, she has had loose hardware the left maxilla resulting in repeated infections. She has a lot of scar tissue. She says she had a screw come out a few years ago. Plan today to go in and debride it, clean it out and allow healing to occur. PROCEDURE On 03/28, she presents to the [facility] area, identified by her name and her bracelet, brought to OR #2 where she was intubated orally by anesthesia, prepped and draped in a sterile fashion. Local anesthesia given with 2% Xylocaine, 1:200,000 epinephrine a total of 8 cc. She was prepped and draped in a sterile fashion. An incision was made with the Bovie in the upper left vestibule. She already had exposure intraorally of her plate. You can see it in the left buttress. Incision made with the Bovie full thickness. The periosteum were reflected back. A lot of scar tissue reflecting back on the left buttresses as the L plate extended up. She had one hole in the inferior segment and one hole in the distal segment. Those screws were taken out on both sides. The screws had worked their way out somewhere in the past years. Some purulence was noted up in there. There was a pocket that had an infection in its. It was cleaned out, debrided, the plate was removed. Two screws were removed. Track where the skin is very thin at this time. I do not want to remove that because it may leave a hole in the face so we are going to allow it to fill back in with some scar and some secondary tissue formation after it is cleared out. We irrigated with copious amounts of saline and then closed with a 3-0 chromic gut up in the left vestibule in a alec Le Forte type closure. She tolerated the procedure well. She was extubated and taken to the Recovery Room to the Recovery Room with vital signs stable. DG Momin /3:29 PM /1:25 PM
[2017-03-29] MEDS ORDERED: VANCOMYCIN INJ 750 MG in SODIUM CHLOR 0.9% 250 ML INJ 250 ML IV SCH (16:00)
[2017-03-30] MEDS ORDERED: PHARMACY ORDERED LAB ONE (15:45)
== END 2017-03-29 10:55 | disposition home or self-care (01) | DRG 496 ==
LOC: NEPD 11:32 → NEDA 16:03 → NEPGCP 17:55 → OBSVTOIN 03-27 16:19 → N07A 03-28 18:00
PROVIDERS: ADMIT Hospitalist; ATTEND Hospitalist
PROC: 0NBS0ZZ (ICD-10-PCS; 2017-03-28)
PROC: 0NPW04Z Removal of Internal Fixation Device from Facial Bone, Open Approach (ICD-10-PCS; principal; 2017-03-28 14:44)
DX: T84.69XA Infection and inflammatory reaction due to internal fixation device of other site, initial encounter (principal); L02.01 Cutaneous abscess of face; L03.211 Cellulitis of face; F17.210 Nicotine dependence, cigarettes, uncomplicated; R73.9 Hyperglycemia, unspecified; K21.9 Gastro-esophageal reflux disease without esophagitis; T38.0X5A Adverse effect of glucocorticoids and synthetic analogues, initial encounter
CPT/HCPCS: 70487; 80048; 80053; 80202; 83036; 83735; 84100; 84439; 84443; 85025; 85652; 86140; 86403; 87070; 87205; 96361; 96365; 96366; 96372; 96375; 96376; G0378; J0131; J1100; J1644; J1885; J2250; J2270; J2405; J2543; J2930; J3010; J3370; J7030; J7042; J7050; Q9967